=== PATIENT | female | born 1995 | race Caucasian/White ===

== ENCOUNTER 2017-01-10 15:08 | Emergency (ER) | payer OTHER ==
[2017-01-10 15:28] VITALS: BP 128/57
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
== END 2017-01-10 16:00 | disposition home or self-care (01) ==
LOC: UCEAST 15:08
DX: R19.7 Diarrhea, unspecified (principal)
CPT/HCPCS: 99212; G0463

== ENCOUNTER 2017-01-12 14:06 | Emergency (ER) | payer OTHER ==
[2017-01-12 14:33] VITALS: BP 117/68
--- NOTE | 2017-01-12 15:47 | UC ---
Neha Cullen Erika, scribed for Jaqueline Abdul MD on 01/12/17 at 1457 . Abdominal Pain Female HPI - HPI Summary HPI Summary: Patient is a 21-year-old female presenting to [facility] with a CC of diarrhea starting 01/09/2017 in the morning, and worsening today. Patient reports that diarrhea is watery, and is aggravated by eating. She states she has eaten wheat toast, a bran muffin, and plain white rice. She also notes abdominal cramping and pain directly before the BMs. Now, she also has a constant abdominal pain in the LLQ rated a 5/10. Associated symptoms include nausea. She denies known fever, urinary symptoms, or blood in stool. Pt states Sx have not improved with Zofran. Pt denies recent Abx use. Hx cryptosporidium 4 years ago; Hx giardia 2 years ago - pt reports this does not feel quite the same. 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 LNMP 12/21. A0. She denies FHx colon CA. - History of Current Complaint Chief Complaint: UCGI Stated Complaint: DIRRHEA,NAUSEA, ABD PAIN Time Seen by Provider: 01/12/17 14:40 Hx Obtained From: Patient Hx Last Menstrual Period: 12/21/16 Onset/Duration: Lasting Days, Still Present Timing: Intermittent Episodes Lasting: - minutes Severity Currently: Moderate Pain Intensity: 5 Pain Scale Used: 0-10 Numeric Location: Discrete At: LLQ Radiates: No Character: Cramping Aggravating Factor(s): Food Alleviating Factor(s): NPO Associated Signs and Symptoms: Positive: Nausea, Diarrhea. Negative: Fever, Blood in Stool Allergies/Adverse Reactions: Allergies Allergy/AdvReac Type Severity Reaction Status Date / Time No Known Allergies Allergy Verified 01/10/17 15:28 PMH/Surg Hx/FS Hx/Imm Hx Previously Healthy: Yes Endocrine History Of: Denies: Diabetes, Thyroid Disease Cardiovascular History Of: Denies: Cardiac Disorders, Hypertension, Pacemaker/ICD Respiratory History Of: Denies: COPD, Asthma GI/ History Of: Denies: Gastroesophageal Reflux, Renal Disease Neurological History Of: Denies: CVA, Dementia, Seizures Other History Of: Negative For: Anticoagulant Therapy - Surgical History Surgical History: Yes Surgery Procedure, Year, and Place: wisdom teeth extraction - Family History Known Family History: Positive: Hypertension, Diabetes, Other - breast CA Family History: Denies FHx colon CA - Social History Occupation: Student Alcohol Use: Weekly Substance Use Type: None Smoking Status (MU): Never Smoked Tobacco Review of Systems Constitutional: Negative Skin: Negative Eyes: Negative ENT: Negative Respiratory: Negative Cardiovascular: Negative Gastrointestinal: Abdominal Pain, Diarrhea, Other - Nausea Genitourinary: Negative Motor: Negative Neurovascular: Negative Musculoskeletal: Negative Neurological: Negative Psychological: Negative All Other Systems Reviewed And Are Negative: Yes Physical Exam Triage Information Reviewed: Yes Appearance: Well-Appearing, Well-Nourished, Pain Distress - Mild Vital Signs: Initial Vital Signs Temp 98.4 F 01/12/17 14:28 Pulse 67 01/12/17 14:28 Resp 18 01/12/17 14:28 BP 117/68 01/12/17 14:28 Pulse Ox 100 01/12/17 14:28 Vital Signs Reviewed: Yes Eyes: Positive: Conjunctiva Clear, Other: - PERRL, EOMI ENT: Positive: Normal ENT inspection Neck: Positive: Supple Respiratory: Positive: Lungs clear, Normal breath sounds, No respiratory distress Cardiovascular: Positive: RRR, No Murmur, Pulses Normal, Brisk Capillary Refill Abdomen Description: Positive: Nontender, No Organomegaly, Soft. Negative: Distended, Guarding, McBurney's Point Tenderness, Peritoneal Signs Bowel Sounds: Positive: Present Musculoskeletal: Positive: Strength Intact, ROM Intact Neurological: Positive: Alert, Muscle Tone Normal Psychological Exam: Normal Skin Exam: Normal Abd Pain Female Course/Dx - Differential Dx/Diagnosis Differential Diagnosis: Diverticulitis, Irritable Bowel Syndrome, Other - infectious colitis Provider Diagnoses: infectious colitis - Physician Notification/Consults Discussed Patient Care With: Shelton in the laboratory at 15:18 - will change previous stool order from yesterday to run the full set of tests Discharge - Discharge Plan Condition: Stable Disposition: HOME Prescriptions: Ondansetron ODT TAB* [Zofran 4 MG Odt TAB*] 4 mg PO Q6H PRN #20 tab.odt PRN Reason: Nausea Patient Education Materials: Infectious Colitis (ED) Referrals: No Primary Care Phys,NOPCP [Primary Care Provider] - [facility] [place] [facility]FERR[facility] [Outside] - 2 Days (Call this number to get established with a primary care provider) Additional Instructions: Dr. Abdul recommends that as long as you do not have a fever, you may take imodium (loperamide)2mg. Take it 2 tabs after the first runny stool and then you may take 1 tab after each loose stool in 24 hrs up to a maximum of [address] Abdul recommends that 3 tabs in 24 hrs is probably sufficient. Continue your electrolyte solution for hydration. No fruit juices. Dr. Abdul recommends the true BRAT diet (white foods). (Bananas, rice, applesauce, tea and plain white bread toast). Bananas are the only fruit, and plain or vanilla yogurt is the only milk product you may have. You may continue the zofran 4mg ODT up to 4 times per day, and you need to eat multiple small meals per day. You may also try shakila or gingerale to soothe your stomach. Go to the emergency room if you have new or worsening symptoms. We have talked to Shelton in the microbiology lab, and he is converting the stool specimen to the comprehensive ova and parasite exam which tests for Cryptosporidium, Giardia and also protozoa and helminths. You may bring back a fresh specimen if you would like us to test for norovirus or rotavirus. Call tomorrow am to see if there are any more results available. The C difficile PCR is negative. The documentation as recorded by the Neha cheema Erika accurately reflects the service I personally performed and the decisions made by me, Jaqueline Abdul MD.
== END 2017-01-12 15:40 | disposition home or self-care (01) ==
LOC: UCEAST 14:06
DX: A09 Infectious gastroenteritis and colitis, unspecified (principal)
CPT/HCPCS: 99212; G0463

== ENCOUNTER 2018-12-30 12:52 | Emergency (ER) | payer OTHER ==
[2018-12-30 13:11] VITALS: BP 120/73
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
[2018-12-30] MEDS ORDERED: Ketorolac INJ* 60 MG/2 ML VIAL IM ONE (14:32)
== END 2018-12-30 14:51 | disposition home or self-care (01) ==
LOC: UCEAST 12:52
DX: M54.5 Low back pain (principal); M51.36 Other intervertebral disc degeneration, lumbar region; M40.50 Lordosis, unspecified, site unspecified; F41.9 Anxiety disorder, unspecified; F32.9 Major depressive disorder, single episode, unspecified
CPT/HCPCS: 72125; 72131; 96372; 99212; G0463; J1885